=== PATIENT | female | born 1970 | race Hispanic/Latino ===

== ENCOUNTER 2017-09-11 21:52 | Emergency (ER) | payer BC ==
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
--- NOTE | 2017-09-12 08:23 | CR ---
Chest and right ribs: Frontal view of the chest is obtained as well as three views of the right ribs. Comparison: No prior study. Heart size and mediastinum are normal. Lungs are clear with no acute parenchymal change. No acute fracture or other right sided rib abnormality is seen. Slight degenerative change seen within the spine. Impression: 1. No discrete abnormality is identified on right rib exam. 2. Nothing acute is seen on frontal chest x-ray. Diagnostic code #2
--- NOTE | 2017-09-12 08:23 | CR ---
Left tibia and fibula: Two views of the left tibia and fibula were obtained. Comparison: No prior study. No fracture or other bony abnormality is seen. Minimal calcification is seen within the anterior beltre which is incidental. Impression: 1. No acute abnormality is seen on the left tibia and fibula study. Diagnostic code #2
== END 2017-09-11 23:35 | disposition home or self-care (01) ==
LOC: JD.ED 21:52
DX: S20.211A Contusion of right front wall of thorax, initial encounter (principal); S83.92XA Sprain of unspecified site of left knee, initial encounter; S00.83XA Contusion of other part of head, initial encounter; Y04.0XXA Assault by unarmed brawl or fight, initial encounter
CPT/HCPCS: 71101-26-RT; 71101-RT; 73590-26-LT; 73590-LT; 99283; 99284